=== PATIENT | male | born 1955 | race Caucasian/White ===

== ENCOUNTER → 2023-07-16 15:30 | Outpatient (BNVA) | payer MEDICARE, OTHER, SELFPAY | PROVIDERS: PCP Family Medicine; Visit Provider Family Medicine | DX: I10 Essential (primary) hypertension (principal); E11.9 Type 2 diabetes mellitus without complications; E03.9 Hypothyroidism, unspecified; E78.5 Hyperlipidemia, unspecified | CPT/HCPCS: 80053; 80061; 83036; 84443; 85025 ==

== ENCOUNTER → 2023-08-18 12:05 | Outpatient (BNVA) | payer MEDICARE, OTHER, SELFPAY | PROVIDERS: PCP Family Medicine; Referring Provider Family Medicine; Visit Provider Internal Medicine Cardiovascular Disease | DX: R07.9 Chest pain, unspecified (principal); I45.10 Unspecified right bundle-branch block; I42.9 Cardiomyopathy, unspecified; I10 Essential (primary) hypertension; E11.9 Type 2 diabetes mellitus without complications; E78.5 Hyperlipidemia, unspecified; Z87.891 Personal history of nicotine dependence | CPT/HCPCS: 93005; 99204 ==

== ENCOUNTER 2023-08-21 09:22 | Outpatient (CLI) | payer MEDICARE, OTHER, SELFPAY ==
--- NOTE | 2023-08-21 10:00 | USCV_ITS ---
Luis Fernando Devlin Age: 68 Gender: M : 1955 Exam Date: 08/21/2023 09:31 Ordering Phys: Peggy Lim MD ([email or web address]) Technologist: GEORGI Exam Location: [facility] [place] Indication: CARDIOMYOPATHY BP: 122 / 81 HR: 84 Rhythm: Sinus Technical Quality: Adequate MEASUREMENTS (Male / Female) Normal Values 2D ECHO LVOT Diameter 2.0 cm LV Ejection Fraction MOD 2C 56.4 % LV Ejection Fraction 2C AL 54.2 % LA Diameter 3.8 cm LA Width 3.1 cm LA Height 5.5 cm RA Width 3.9 cm RA Height 4.4 cm Aorta at Sinotubular Diameter 2.7 cm IVC Diameter 2.0 cm M-MODE Aortic Annulus Diameter 3.8 cm LA Ao Ratio MM 1.1 MV E Point Septal Separation 1.2 cm DOPPLER AV Peak Velocity 121.0 cm/s LVOT Peak Velocity 111.0 cm/s AV Area Cont Eq vti 2.9 cm squared AV Area Cont Eq pk 3.0 cm squared MV Peak Velocity 93.0 cm/s MV Area PHT 3.9 cm squared Mitral E to A Ratio 0.4 MV E' Velocity 22.0 cm/s Mitral E to MV E' Ratio 5.0 Mitral E to LV E' Lateral Ratio 4.0 Mitral E to LV E' Septal Ratio 6.8 TR Peak Velocity 115.8 cm/s TR Peak Gradient 5.4 mmHg TR Mean Velocity 94.1 cm/s TR Mean Gradient 3.7 mmHg TR Velocity Time Integral 22.3 cm TV Peak E Velocity 37.0 cm/s Right Atrial Pressure 3.0 mmHg Pulmonary Artery Systolic Pressu 8.4 mmHg PV Peak Velocity 89.0 cm/s RV Acceleration Time 0.1 s RV Ejection Time 0.3 s RV AcT/ET 0.4 FINDINGS Left Ventricle Normal left ventricular size and systolic function, EF 60 %. No regional wall motion abnormalities. Mild left ventricular hypertrophy. Grade I/IV diastolic dysfunction (abnormal relaxation filling pattern), normal to mildly elevated filling pressures. Right Ventricle The right ventricle is normal in size and function. Right Atrium The right atrium is normal in size. Left Atrium Left atrium, upper limit of normal size Mitral Valve No gross abnormalities noted Aortic Valve No gross abnormalities noted Tricuspid Valve No gross abnormalities noted . Pulmonic Valve No gross abnormalities noted Pericardium Normal pericardium without effusion. Aorta Normal ascending aorta dimension. IVC The inferior vena cava appears normal. CONCLUSIONS Normal left ventricular size and systolic function, EF 60 %. No regional wall motion abnormalities. Mild left ventricular hypertrophy. Grade I/IV diastolic dysfunction (abnormal relaxation filling pattern), normal to mildly elevated filling pressures. Left atrium, upper limit of normal size. No gross valvular abnormalities noted. There is no pericardial effusion. Technically somewhat limited study because of poor parasternal windows Dr Peggy Lim MD FACC (Electronically Signed) Final Date: 23 August 2023 08:51 S
== END 2023-08-21 09:23 | disposition home or self-care (01) ==
LOC: RAD 09:22
PROVIDERS: PCP Family Medicine; Visit Provider Internal Medicine Cardiovascular Disease
DX: R06.09 Other forms of dyspnea (principal)
CPT/HCPCS: 93306

== ENCOUNTER → 2023-09-22 08:53 | Outpatient (BNVA) | payer MEDICARE, OTHER, SELFPAY | PROVIDERS: PCP Family Medicine; Visit Provider Nurse Practitioner Family | DX: M19.011 Primary osteoarthritis, right shoulder (principal); M25.511 Pain in right shoulder | CPT/HCPCS: 73030 ==

== ENCOUNTER 2023-10-15 07:32 | Outpatient (CLI) | payer MEDICARE, OTHER, SELFPAY ==
--- NOTE | 2023-10-15 08:00 | MR_ITS ---
WS: [id number] MRI RIGHT KNEE NONCONTRAST TECHNIQUE: Axial PD, coronal PD fat sat, coronal PD, sagittal PD, and sagittal PD fat-sat images obta ined. CLINICAL INFORMATION: M25.561 - Pain in right knee COMPARISON: None. FINDINGS: Distal quadriceps and patella tendons are intact. Hypertrophic patella. No significant joint effusion . 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 Chondral fissuring involving the lateral joint bridger rtment at the tibial plateau. Grade IV chondromalacia patella. Hypertrophic patella. Medial and later al patellar retinaculum appear intact. Prepatellar soft tissue edema. Normal lateral collateral ligam ent. Medial collateral ligament appears intact. Chronic thinning of the medial and lateral meniscus. No acute appearing meniscal tears. Small amount of chronic intrasubstance signal normality involving the posterior horn medial meniscus. Tiny lobulated ganglion cysts along the dorsal intercondylar notc h. Small lobulated varices in the popliteal fossa. Ovoid low signal lesion measuring 9 x 5 mm in the dorsal superior intercondylar notch adjacent to the ACL and just dorsal to the PCL. This may present a calcified loose body or possibly ossified ganglio n cyst. No other suspicious findings. IMPRESSION: 1. Normal ACL and PCL. 2. Ovoid low signal nodule in the dorsal intercondylar notch abutting the ACL and just dorsal to the PCL. This may present a calcified intra-articular loose body or ossified ganglion cyst. This measure s approximately 9 x 5 mm 3. Moderate to advanced tricompartmental arthritis. Grade 3-4 chondromalacia lateral joint compartme nt. 4. Grade IV chondromalacia patella. 5. No acute appearing meniscal tears. 6. No other acute findings. Outbridge grading: grade IV: full-thickness cartilage loss with underlying bone reactive changes
--- NOTE | 2023-10-15 08:45 | MR_ITS ---
WS: [id number] MRI RIGHT SHOULDER NONCONTRAST TECHNIQUE: Sagittal T2, coronal T1, T2 and proton density imaging. Axial gradient PDE imaging. CLINICAL INFORMATION: M25.511 - Pain in right shoulder COMPARISON: None. FINDINGS: Moderate to advanced degenerative arthritis AC joint with mild synovial thickening and edema. Mild do wnsloping acromion with impingement on the distal supraspinatus. Slight subacromial spurring. Trace s ubacromial fluid. Chronic thinning of the distal supraspinatus. Supraspinatus and infraspinatus appea r intact. Normal teres minor. Normal subscapularis. Small amount of subcoracoid fluid. Moderate to advanced degenerative arthritis glenohumeral joint with hypertrophic spurring and joint s pace narrowing. Subchondral cystic change involving the glenoid. Distal subscapularis appears intact. Mild chronic thinning of the subscapularis tendon. Biceps tendon appears intact within the bicipital groove. Degenerative fraying of the glenoid labrum. Thickening with increased signal intra-articular biceps tendon compatible with tendinopathy. IMPRESSION: 1. Advanced degenerative arthritis AC joint with mild subacromial spurring and slight impingement of the distal supraspinatus. Small amount of subacromial fluid. 2. Chronic thinning of the distal supraspinatus which appears intact. Rotator cuff is otherwise inta ct. 3. Biceps tendon intact within the bicipital groove. 4. Moderate to advanced degenerative narrowing of the glenohumeral articulation with hypertrophic ch anges. Degenerative fraying and irregularity of the glenoid labrum. 5. Tendinopathy intra-articular biceps tendon. 6. No other acute findings.
== END 2023-10-15 07:33 | disposition home or self-care (01) ==
LOC: RAD 07:32
PROVIDERS: PCP Family Medicine; Visit Provider Nurse Practitioner Family
DX: M22.41 Chondromalacia patellae, right knee (principal); M25.561 Pain in right knee; G89.29 Other chronic pain; M25.511 Pain in right shoulder; M19.011 Primary osteoarthritis, right shoulder
CPT/HCPCS: 73221; 73721

== ENCOUNTER → 2023-10-27 08:11 | Outpatient (BNVA) | payer MEDICARE, OTHER, SELFPAY | PROVIDERS: PCP Family Medicine; Referring Provider Nurse Practitioner Family; Visit Provider Nurse Practitioner | DX: M19.011 Primary osteoarthritis, right shoulder (principal); M67.911 Unspecified disorder of synovium and tendon, right shoulder; S43.101A Unspecified dislocation of right acromioclavicular joint, initial encounter; X58.XXXA Exposure to other specified factors, initial encounter | CPT/HCPCS: 20610; 99205; J1100; J2795; J3301 ==

== ENCOUNTER → 2023-10-31 08:59 | Outpatient (BNVA) | payer MEDICARE, OTHER, SELFPAY | PROVIDERS: Visit Provider Nurse Practitioner | DX: M17.11 Unilateral primary osteoarthritis, right knee | CPT/HCPCS: 73560; 73565; 99214 ==

== ENCOUNTER → 2023-11-04 09:12 | Outpatient (BNVA) | payer MEDICARE, OTHER, SELFPAY | PROVIDERS: PCP Family Medicine; Visit Provider Family Medicine | DX: R05.9 Cough, unspecified (principal); R50.9 Fever, unspecified | CPT/HCPCS: 87070; 87880 ==

== ENCOUNTER 2023-11-05 06:00 | Outpatient (RCR) | payer MEDICARE, OTHER, SELFPAY | END 2023-11-13 23:59 | disposition home or self-care (01) | LOC: APT 06:00 | PROVIDERS: PCP Family Medicine; Visit Provider Nurse Practitioner | DX: M19.011 Primary osteoarthritis, right shoulder (principal) | CPT/HCPCS: 97110; 97162; 97530 ==

== ENCOUNTER 2023-11-14 06:00 | Outpatient (RCR) | payer MEDICARE, OTHER, SELFPAY | END 2023-12-14 23:59 | disposition home or self-care (01) | LOC: APT 06:00 | PROVIDERS: PCP Family Medicine; Visit Provider Nurse Practitioner | DX: M19.011 Primary osteoarthritis, right shoulder (principal) | CPT/HCPCS: 97110; 97530 ==

== ENCOUNTER 2023-12-15 06:00 | Outpatient (RCR) | payer MEDICARE, OTHER, SELFPAY | END 2024-01-13 23:59 | disposition home or self-care (01) | LOC: APT 06:00 | PROVIDERS: PCP Family Medicine; Visit Provider Nurse Practitioner | DX: M19.011 Primary osteoarthritis, right shoulder (principal) | CPT/HCPCS: 97110; 97140; 97530 ==

== ENCOUNTER → 2024-01-21 08:17 | Outpatient (BNVA) | payer MEDICARE, OTHER, SELFPAY | PROVIDERS: PCP Family Medicine; Visit Provider Family Medicine | DX: E11.9 Type 2 diabetes mellitus without complications (principal); Z12.5 Encounter for screening for malignant neoplasm of prostate; Z79.899 Other long term (current) drug therapy | CPT/HCPCS: 80053; 80061; 82043; 82306; 83036; 84443; 85025; G0103 ==

== ENCOUNTER → 2024-02-17 10:04 | Outpatient (BNVA) | payer MEDICARE, OTHER, SELFPAY | PROVIDERS: Visit Provider Internal Medicine Cardiovascular Disease | DX: I11.0 Hypertensive heart disease with heart failure (principal); I50.32 Chronic diastolic (congestive) heart failure; E78.2 Mixed hyperlipidemia; E11.9 Type 2 diabetes mellitus without complications; Z79.4 Long term (current) use of insulin; E03.8 Other specified hypothyroidism; Z87.891 Personal history of nicotine dependence | CPT/HCPCS: 99214 ==

== ENCOUNTER → 2024-04-21 09:10 | Outpatient (BNVA) | payer MEDICARE, OTHER, SELFPAY | PROVIDERS: PCP Family Medicine; Visit Provider Family Medicine | DX: E11.9 Type 2 diabetes mellitus without complications (principal) | CPT/HCPCS: 80053; 80061; 83036; 84443; 85025 ==

== ENCOUNTER 2024-06-02 11:42 | Outpatient (CLI) | payer MEDICARE, OTHER, SELFPAY ==
--- NOTE | 2024-06-02 11:49 | XRR_ITS ---
PROCEDURE INFORMATION: Exam: XR Right Knee Exam date and time: 06/02/2024 11:54 AM Age: 68 years old Clinical indication: Patient HX: Pain in the right knee and osteoarthritis in the RT shoulder. PT states he could have injured it when working over the last few years. ; Additional info: Pain in right knee TECHNIQUE: Imaging protocol: Radiologic exam of the right knee. Views: 1 or 2 views. COMPARISON: CR XR knees AP WB w RT lmt ORTH 10/31/2023 9:08 AM FINDINGS: Bones/joints: Moderate patellofemoral joint space narrowing and osteophytosis. No acute fracture or dislocation. No significant knee joint effusion. Soft tissues: Visualized soft tissues are within normal limits. XR/XR knee RT 1-2V [id number] IMPRESSION: Moderate osteoarthritis of the patellofemoral joint. This appears stable to minimally worsened compared to 10/31/2023.
--- NOTE | 2024-06-02 11:50 | XRR_ITS ---
PROCEDURE INFORMATION: Exam: XR Right Shoulder Exam date and time: 06/02/2024 11:54 AM Age: 68 years old Clinical indication: Patient HX: Pain in the right knee and osteoarthritis in the RT shoulder. PT states he could have injured it when working over the last few years. ; Additional info: Osteoarthritis in right shoulder TECHNIQUE: Imaging protocol: Radiologic exam of the right shoulder. Views: 2 or more views. COMPARISON: MR shoulder RT wo con* [id number] 10/15/2023 7:48 AM FINDINGS: Bones/joints: [id number] acromioclavicular joint arthrosis. [id number]-fg-[id number] glenohumeral joint arthrosis. No acute fracture or dislocation. Soft tissues: Visualized soft tissues are within normal limits. XR/XR shoulder RT min 2V* [id number] IMPRESSION: 1. Pjim-ay-iaxaqugr acromioclavicular joint arthrosis. 2. Uaqd-uh-tnwbfdcb glenohumeral joint arthrosis.
== END 2024-06-02 11:43 | disposition home or self-care (01) ==
LOC: RAD 11:46
PROVIDERS: PCP Family Medicine; Visit Provider Student in an Organized Health Care Education/Training Program
DX: M19.011 Primary osteoarthritis, right shoulder (principal); M17.11 Unilateral primary osteoarthritis, right knee
CPT/HCPCS: 73030; 73560

== ENCOUNTER → 2024-08-04 09:16 | Outpatient (BNVA) | payer MEDICARE, OTHER, SELFPAY | PROVIDERS: PCP Nurse Practitioner Family; Visit Provider Nurse Practitioner Family | DX: R79.89 Other specified abnormal findings of blood chemistry (principal); E78.5 Hyperlipidemia, unspecified; E11.9 Type 2 diabetes mellitus without complications | CPT/HCPCS: 80053; 80061; 83036; 84403; 85025 ==

== ENCOUNTER 2024-09-28 14:04 | Outpatient (CLI) | payer MEDICARE, OTHER, SELFPAY ==
--- NOTE | 2024-09-28 14:00 | US_ITS ---
WS: [id number] THYROID ULTRASOUND HISTORY: E04.9 - Nontoxic goiter, unspecified COMPARISON: None available. Right lobe: 3.1 cm x 4.5 cm x 6.8 cm (w x ap x l). Volume: 44.7 cm3. Markedly enlarged heterogeneous thyroid lobe. Increased vascularity. There are small scattered pseudo nodules. Left lobe: 4.9 cm x 4.3 cm x 6.8 cm (w x ap x l). Volume: 68.9 cm3. Markedly enlarged heterogeneous thyroid lobe. Markedly nodular gland with mildly increased vascularit y. Isthmus: 1.1 cm. US/US thyroid [id number] IMPRESSION: Markedly enlarged nodular heterogeneous gland. Most likely multinodular goiter.
== END 2024-09-28 14:05 | disposition home or self-care (01) ==
PROVIDERS: PCP Nurse Practitioner Family; Visit Provider Nurse Practitioner Family
DX: E04.2 Nontoxic multinodular goiter (principal)
CPT/HCPCS: 76536

== ENCOUNTER → 2024-10-11 13:04 | Outpatient (BNVA) | payer MEDICARE, OTHER, SELFPAY | PROVIDERS: PCP Nurse Practitioner Family; Visit Provider Nurse Practitioner Family | DX: R05.9 Cough, unspecified (principal) | CPT/HCPCS: 71046 ==

== ENCOUNTER → 2024-11-09 12:15 | Outpatient (BNVA) | payer MEDICARE, OTHER, SELFPAY | PROVIDERS: PCP Nurse Practitioner Family; Visit Provider Nurse Practitioner Family | DX: E11.9 Type 2 diabetes mellitus without complications (principal); E03.9 Hypothyroidism, unspecified | CPT/HCPCS: 80053; 80061; 83036; 83735; 84443; 85025 ==

== ENCOUNTER → 2024-12-21 08:13 | Outpatient (BNVA) | payer MEDICARE, OTHER, SELFPAY | PROVIDERS: PCP Nurse Practitioner Family; Referring Provider Nurse Practitioner Family; Visit Provider Internal Medicine | DX: G47.33 Obstructive sleep apnea (adult) (pediatric) (principal); I50.9 Heart failure, unspecified; E29.1 Testicular hypofunction; E11.9 Type 2 diabetes mellitus without complications; Z12.5 Encounter for screening for malignant neoplasm of prostate; R71.8 Other abnormality of red blood cells | CPT/HCPCS: 99204 ==

== ENCOUNTER → 2024-12-22 08:04 | Outpatient (BNVA) | payer MEDICARE, OTHER, SELFPAY | PROVIDERS: PCP Nurse Practitioner Family; Visit Provider Internal Medicine | DX: G47.33 Obstructive sleep apnea (adult) (pediatric) (principal); Z12.5 Encounter for screening for malignant neoplasm of prostate; I50.9 Heart failure, unspecified; E29.1 Testicular hypofunction; E11.9 Type 2 diabetes mellitus without complications | CPT/HCPCS: 80053; 80061; 83001; 83002; 84146; 84270; 84402; 84403; 85025; G0103 ==

== ENCOUNTER 2025-01-06 15:12 | Oncology outpatient (recurring) (ONCR) | payer MEDICARE, OTHER, SELFPAY | END 2025-01-12 23:59 | disposition home or self-care (01) | PROVIDERS: PCP Nurse Practitioner Family; Visit Provider Internal Medicine | DX: D75.1 Secondary polycythemia (principal); E11.9 Type 2 diabetes mellitus without complications; E78.5 Hyperlipidemia, unspecified; E66.9 Obesity, unspecified; I50.9 Heart failure, unspecified; G47.33 Obstructive sleep apnea (adult) (pediatric); Z68.32 Body mass index [BMI] 32.0-32.9, adult | CPT/HCPCS: 99204 ==

== ENCOUNTER 2025-02-03 07:19 | Outpatient (CLI) | payer MEDICARE, OTHER, SELFPAY ==
--- NOTE | 2025-02-03 07:21 | CT_ITS ---
WS: [id number] CT NECK TECHNIQUE: Contrast-enhanced CT of the neck with coronal and sagittal reformatted images. CLINICAL INFORMATION: GOITER COMPARISON: None. DLP: 288.[address] scans at [facility] use at least one of these dose optimization techniques: automated exposure control; mA and/or kV adjustment per patient size (includes targeted exams where dose is matched to clinical indication); or iterative reconstruction. FINDINGS: Enlarged heterogeneous thyroid compatible with multinodular goiter worse involving the LEFT thyroid lobe. Enlargement of the isthmus. Enlarged LEFT thyroid extends into the anterior superior mediastinum. Left-right mass effect on the trachea which remains patent. Complex complex cystic dorsal projecting LEFT thyroid nodule measuring 2.6 x 3.2 cm Dental artifact degrades images of the tongue base. Parotid glands are normal. Normal submandibular glands. Normal [place] tonsils. Normal posterior nasopharynx and parapharyngeal fat. No evidence of supraglottic or glottic mass. Aortic calcification. Lung apices are well aerated. Paranasal sinuses and mastoid air cells are well aerated. CT/CT neck w con* [id number] IMPRESSION: 1. Enlarged multinodular goiter described above with extension into the anteri or superior mediastinum worse involving the LEFT thyroid lobe. 2. LEFT RIGHT deviation of the trachea. No significant narrowing. 3. Normal salivary glands. 4. No other acute findings.
== END 2025-02-03 07:20 | disposition home or self-care (01) ==
PROVIDERS: PCP Nurse Practitioner Family; Visit Provider Specialist
DX: E04.2 Nontoxic multinodular goiter (principal); J39.8 Other specified diseases of upper respiratory tract; R93.89 Abnormal findings on diagnostic imaging of other specified body structures; I70.0 Atherosclerosis of aorta
CPT/HCPCS: 70491

== ENCOUNTER → 2025-02-15 09:31 | Outpatient (BNVA) | payer MEDICARE, OTHER, SELFPAY | PROVIDERS: PCP Nurse Practitioner Family; Visit Provider Nurse Practitioner Family | DX: E11.9 Type 2 diabetes mellitus without complications (principal); I50.9 Heart failure, unspecified; G47.33 Obstructive sleep apnea (adult) (pediatric); Z12.5 Encounter for screening for malignant neoplasm of prostate; E03.9 Hypothyroidism, unspecified; E29.1 Testicular hypofunction | CPT/HCPCS: 80053; 80061; 84270; 84402; 84403; 84443; 85025; G0103 ==

== ENCOUNTER → 2025-02-17 07:49 | Outpatient (BNVA) | payer MEDICARE, OTHER, SELFPAY | PROVIDERS: PCP Nurse Practitioner Family; Visit Provider Internal Medicine | DX: E29.1 Testicular hypofunction (principal); E11.9 Type 2 diabetes mellitus without complications; I50.9 Heart failure, unspecified | CPT/HCPCS: 99214 ==

== ENCOUNTER → 2025-02-21 08:49 | Outpatient (BNVA) | payer MEDICARE, OTHER, SELFPAY | PROVIDERS: PCP Nurse Practitioner Family; Referring Provider Nurse Practitioner Family; Visit Provider Student in an Organized Health Care Education/Training Program | DX: Z12.11 Encounter for screening for malignant neoplasm of colon (principal) | CPT/HCPCS: 99024; 99204 ==

== ENCOUNTER → 2025-02-23 11:05 | Outpatient (BNVA) | payer MEDICARE, OTHER, SELFPAY | PROVIDERS: PCP Nurse Practitioner Family; Visit Provider Internal Medicine Cardiovascular Disease | DX: I11.0 Hypertensive heart disease with heart failure (principal); I50.32 Chronic diastolic (congestive) heart failure; E78.5 Hyperlipidemia, unspecified; Z79.82 Long term (current) use of aspirin; Z87.891 Personal history of nicotine dependence; R07.9 Chest pain, unspecified; R06.02 Shortness of breath | CPT/HCPCS: 36415; 80048; 83880; 93005; 99214 ==

== ENCOUNTER → 2025-03-02 08:05 | Outpatient (BNVA) | payer MEDICARE, OTHER, SELFPAY | PROVIDERS: PCP Nurse Practitioner Family; Visit Provider Internal Medicine | DX: I50.9 Heart failure, unspecified (principal); E29.1 Testicular hypofunction; G47.33 Obstructive sleep apnea (adult) (pediatric) | CPT/HCPCS: 84403 ==

== ENCOUNTER 2025-03-10 13:01 | Oncology outpatient (recurring) (ONCR) | payer MEDICARE, OTHER, SELFPAY ==
[2025-03-10 13:37] LABS: Basophils % 0.5 %; Eosinophils # 0.2 10^3/uL (0.0-0.8); Eosinophils % 2.7 %; Hematocrit 46.1 % (37-53); Lymphocytes # 2.5 10^3/uL (0.8-4.8); Lymphocytes % 31.4 %; Mean Corpuscular HGB Conc 33.8 g/dL (30-55); Mean Corpuscular Hemoglobin 31.8 pg (27-33); Mean Corpuscular Volume 94.1 fl (82-101); Mean Platelet Volume 10.2 fL (7.4-10.4); Monocytes # 0.8 10^3/uL (0.2-0.9); Monocytes % 10.1 %; Neutrophils # 4.44 10^3/uL (1.8-7.7); Neutrophils % 55.1 %; Nucleated Red Blood Cells % 0 %; Platelet Count 227 10^3/cmm (157-399); Red Cell Distribution Width 11.9 % (12.1-15.1); White Blood Count 8.08 10^3/uL (3.29-11.43)
[2025-03-10 13:59] LABS: Alanine Aminotransferase 27 U/L (0-41); Albumin Level 4.3 g/dL (3.5-5.2); Alkaline Phosphatase 71 U/L (40-130); Anion Gap 14.5 (5-19); Aspartate Amino Transferase 21 U/L (0-40); Blood Urea Nitrogen 15 mg/dL (8-23); Calcium 8.9 mg/dL (8.5-10.5); Carbon Dioxide 27 mmol/L (22-29); Chloride 98 mmol/L (98-107); Globulin 2.4 g/dL (1.3-4.6); Glomerular Filtration Rate 111.5 mL/min (90-130); Glucose 141 mg/dL (65-115); Osmolality Calculated 283 mOsm/kg (285-295); Potassium 4.5 mmol/L (3.5-5.1); Sodium 135 mmol/L (136-145); Total Bilirubin 0.6 mg/dL (0.15-1.2); Total Protein 6.7 g/dL (6.6-8.7)
== END 2025-03-14 23:59 | disposition home or self-care (01) ==
PROVIDERS: Nurse Practitioner; PCP Nurse Practitioner Family; Visit Provider Internal Medicine
DX: D75.1 Secondary polycythemia (principal)
CPT/HCPCS: 36415; 80053; 85025

== ENCOUNTER 2025-03-15 10:29 | Day surgery (SDC) | payer MEDICARE, OTHER, SELFPAY ==
[2025-03-15 10:46] VITALS: BMI 32.3
[2025-03-15 10:51] VITALS: BP 123/81; PULSE 84; RESP 18; TEMP 36.3; O2SAT 97
--- NOTE | 2025-03-15 11:01 | ANES.PREANE2 ---
Pre-Anesthetic Assessment Height/Weight: Height 1.83 m Weight 107.955 kg Temp Pulse Resp BP Pulse Ox O2 Del Method 97.3 F L 84 18 123/81 97 Room Air 03/15/25 10:51 03/15/25 10:51 03/15/25 10:51 03/15/25 10:51 03/15/25 10:51 03/15/25 10:51 Operation Date: 03/15/25 12:00 Proposed Procedures p Colonoscopy 93553 G0105 Z12.11(Not Applicable) - Sherif Alcaraz MD Familial anesthetic complications: None Was Beta Gabriel taken within 24 hours: Yes Was Clonidine taken within 24 hours: N/A Last intake: Intake Last Liquid Date 03/14/25 Last Liquid Time 22:00 Last Solid Date 03/13/25 Last Solid Time 18:00 Social No alcohol and No tobacco Exam alert, oriented x 3, clear to auscultation bilaterally and regular rate & rhythm Airway Submandibular: within normal limits Cervical ROM: within normal limits Mallampati: Class II Dentition: full (Implants, some missing) History/ROS No significant history except as noted and No significant complaints Pulmonary Sleep Apnea CV/HEM Arrythmia, Coronary Artery Disease (Received cardiac clearance), Congestive Heart Failure and Hypertension CONCLUSIONS Normal left ventricular size and systolic function, EF 60 %. No regional wall motion abnormalities. Mild left ventricular hypertrophy. Grade I/IV diastolic dysfunction (abnormal relaxation filling pattern), normal to mildly elevated filling pressures. Left atrium, upper limit of normal size. No gross valvular abnormalities noted. There is no pericardial effusion. Technically somewhat limited study because of poor parasternal windows None reported Hepatic Hepatitis (Hep C, has been treated ) GI Chronic diarrhea Metabolic Diabetes Mellitus, Hyperlipidemia and Thyroid Disease (Goiters) Musc/skel Lower Back Pain and Osteoarthritis/DJD Neuropsych Neuropathy Anesthetic Plan ASA status: 3 Anesthesia: Anesthesia Evaluation, General and MAC Risk of > 500 ml blood loss (7ml/kg in children): No Medications/Allergies Home Medications ?Medication ?Instructions ?Recorded ?Confirmed ?Last Taken ?Type aspirin 81 mg tablet,delayed 81 mg PO DAILY 05/14/23 03/10/25 03/13/25 History release (Adult Low Dose Aspirin) glipizide 5 mg tablet 5 mg PO BID 05/14/23 03/10/25 03/14/25 History omega-3 fatty acids 1,000 mg 1,000 mg PO DAILY 05/14/23 03/10/25 03/13/25 History capsule lancets 31 gauge #300 ea 08/04/23 03/10/25 Unknown Rx blood-glucose meter (Blood Glucose #1 ea 08/13/23 03/10/25 Unknown Rx Monitoring kit) hydrocodone 10 mg-acetaminophen 1 tab PO Q6H PRN pain 30 days #120 05/07/24 03/15/25 03/14/25 Rx 325 mg tablet tabs blood sugar diagnostic (Blood #50 ea 07/08/24 03/10/25 Unknown Rx Glucose Test strips) losartan 50 mg tablet 50 mg PO DAILY #90 tabs 10/04/24 03/10/25 03/14/25 Rx insulin syringe-needle U-100 1 mL #100 ea 11/01/24 03/10/25 Unknown Rx 31 gauge x 5/16 (BD Insulin Syringe Ultra-Fine) syringe with needle 3 mL 21 gauge #100 ea 12/21/24 03/10/25 Unknown History x 1 1/2 (BD Luer-Jarrell Syringe) needle (disp) 18 G 18 gauge x 1 #10 ea 12/29/24 03/10/25 Unknown Rx 1/2 (BD Regular Bevel [place]) needle (disp) 23 gauge 23 gauge x #10 ea 12/29/24 03/10/25 Unknown Rx 1 1/4 (BD Specialty Use [place]) diclofenac sodium 1 % topical gel 4 g topical QID PRN Pain 01/06/25 03/15/25 Unknown History syringe with needle 3 mL 21 gauge #100 ea 01/11/25 03/10/25 Unknown Rx x 1 1/2 (BD Luer-Jarrell Syringe) metformin 500 mg tablet,extended 1,000 mg (2 x 500 mg) PO BID #360 01/17/25 03/10/25 03/14/25 Rx release 24 hr tabs tamsulosin 0.4 mg capsule 0.4 mg PO DAILY #30 caps 01/27/25 03/10/25 03/13/25 Rx tizanidine 2 mg tablet 2 mg PO BID PRN Muscle Spasm 02/15/25 03/10/25 03/13/25 History levothyroxine 50 mcg tablet 25 mcg PO DAILY 02/23/25 03/10/25 03/15/25 History (Synthroid) testosterone cypionate 200 mg/mL 80 mg (0.4 mL) SUBCUT Q7D #1 mL 03/04/25 03/10/25 03/06/25 Rx intramuscular oil (Depo-Testosterone) carvedilol 6.25 mg tablet 6.25 mg PO BID #180 tabs 03/09/25 03/10/25 03/15/25 Rx atorvastatin 40 mg tablet 40 mg PO DAILY 03/10/25 03/10/25 03/14/25 History famotidine 40 mg tablet (Pepcid) 40 mg PO BID 03/10/25 03/10/25 03/14/25 History insulin glargine 100 unit/mL 60 unit SUBCUT BID 03/10/25 03/10/25 03/14/25 History subcutaneous solution (Lantus U-100 Insulin) semaglutide 1 mg/dose (4 mg/3 mL) 1 mg SUBCUT .WEEKY 03/10/25 03/10/25 03/06/25 History subcutaneous pen injector (Ozempic) spironolactone 25 mg tablet 25 mg PO DAILY 03/10/25 03/10/25 03/13/25 History Allergies Allergy/AdvReac Type Severity Reaction Status Date / Time No Known Allergies Allergy Verified 03/10/25 08:46 Current Medications Generic Name Dose Route Start Last Admin Trade Name Freq PRN Reason Stop Dose Admin Sodium Chloride 1,000 mls @ 15 mls/hr 03/15/25 10:35 03/15/25 10:53 Sodium Chloride 0.9% IV 03/16/25 10:34 15 mls/hr .Q24H PRN Administration COLONOSCOPY FLUIDS PFSH Anesthesia Medical History Primary osteoarthritis of right knee Separation of acromioclavicular joint due to injury Tendinopathy of right rotator cuff Arthritis of right acromioclavicular joint Primary osteoarthritis, right shoulder Diabetes mellitus Hyperlipidemia Cardiomyopathy Chronic back pain greater than 3 months duration Hypothyroid Hypertension Surgical History Hx of appendectomy History of skin graft left hand History of back surgery Social History Smoking and tobacco/nicotine status: former use of tobacco/nicotine Quit status (tobacco/nicotine): has quit using Year quit tobacco: 23 YEARS AGO Second hand smoke exposure: No Alcohol intake: never Substance/Drug Use: never Adopted: No Caregiver/support person: No Lives independently: Yes Household members: spouse Housing: House Marital status: Number of children: 2 Highest education level completed: High School Graduate service: No Current occupational status: retired Data Anesthesia Cardiac Studies: Echocardiogram 08/21/23
--- NOTE | 2025-03-15 11:03 | W.PM.OPSUD ---
Surgery/Procedure H&P Update DATE OF PROCEDURE: March 15, 2025 DATE H&P PERFORMED: 02/21/25 H&P UPDATE INFORMATION: I have reviewed H&P completed within last 30 days, I have examined patient prior to procedure and No changes to prior documentation PLANNED PROCEDURE: Operation Date: 03/15/25 12:00 Proposed Procedures p Colonoscopy 79750 G0105 Z12.11(Not Applicable) - Sherif Alcaraz MD
[2025-03-15 11:40] VITALS: BP 102/58; PULSE 69; RESP 10; TEMP 36.4; O2SAT 97
[2025-03-15 11:58] VITALS: BP 113/72; PULSE 63; RESP 18; O2SAT 97
== END 2025-03-15 12:13 | disposition home or self-care (01) ==
PROVIDERS: PCP Nurse Practitioner Family; Visit Provider Student in an Organized Health Care Education/Training Program
PROC: 0DJD8ZZ Inspection of Lower Intestinal Tract, Via Natural or Artificial Opening Endoscopic (ICD-10-PCS; CPT 45378; principal; 2025-03-15 12:00)
DX: Z12.11 Encounter for screening for malignant neoplasm of colon (principal); Z80.0 Family history of malignant neoplasm of digestive organs; I25.10 Atherosclerotic heart disease of native coronary artery without angina pectoris; I11.0 Hypertensive heart disease with heart failure; I50.9 Heart failure, unspecified; E78.5 Hyperlipidemia, unspecified; E04.9 Nontoxic goiter, unspecified; E11.40 Type 2 diabetes mellitus with diabetic neuropathy, unspecified; Z79.84 Long term (current) use of oral hypoglycemic drugs; Z79.82 Long term (current) use of aspirin; Z79.899 Other long term (current) drug therapy; Z79.4 Long term (current) use of insulin; Z79.890 Hormone replacement therapy; Z79.85 Long-term (current) use of injectable non-insulin antidiabetic drugs; Z87.891 Personal history of nicotine dependence
CPT/HCPCS: 36416; 82962; G0105; J2704; J7030

== ENCOUNTER 2025-05-12 10:51 | Oncology outpatient (recurring) (ONCR) | payer MEDICARE, OTHER, SELFPAY ==
[2025-05-12 11:15] LABS: Hematocrit 48.7 % (37-53); Hemoglobin 16.00 g/dL (11.27-16.99); Mean Corpuscular HGB Conc 32.9 g/dL (30-55); Mean Corpuscular Hemoglobin 30.5 pg (27-33); Mean Corpuscular Volume 92.9 fl (82-101); Nucleated Red Blood Cells % 0 %; Platelet Count 200 10^3/cmm (157-399); Red Blood Count 5.24 10^6/uL (3.85-5.65); White Blood Count 7.51 10^3/uL (3.29-11.43)
[2025-05-12 11:28] LABS: Alanine Aminotransferase 35 U/L (0-41); Albumin Level 4.3 g/dL (3.5-5.2); Alkaline Phosphatase 74 U/L (40-130); Anion Gap 12.7 (5-19); Aspartate Amino Transferase 23 U/L (0-40); Blood Urea Nitrogen 17 mg/dL (8-23); Calcium 9.3 mg/dL (8.5-10.5); Carbon Dioxide 30 mmol/L (22-29); Chloride 99 mmol/L (98-107); Ferritin 80 ng/mL (30-400); Globulin 2.7 g/dL (1.3-4.6); Glucose 80 mg/dL (65-115); Iron 149 ug/dL (59-158); Osmolality Calculated 285 mOsm/kg (285-295); Potassium 4.7 mmol/L (3.5-5.1); Sodium 137 mmol/L (136-145); Total Iron Binding Capacity 337 mcg/dl; Total Protein 7.0 g/dL (6.6-8.7); Unsaturated Iron Binding 188 ug/dL (112-347); Uric Acid 4.2 mg/dL (3.4-7.0)
== END 2025-05-15 23:59 | disposition home or self-care (01) ==
PROVIDERS: Nurse Practitioner; PCP Nurse Practitioner Family; Visit Provider Internal Medicine
DX: D75.1 Secondary polycythemia (principal); E11.9 Type 2 diabetes mellitus without complications; Z87.891 Personal history of nicotine dependence; Z53.9 Procedure and treatment not carried out, unspecified reason
CPT/HCPCS: 36415; 80053; 82728; 83540; 83550; 84550; 85025; 99213

== ENCOUNTER → 2025-05-19 09:17 | Outpatient (BNVA) | payer MEDICARE, OTHER, SELFPAY | PROVIDERS: PCP Nurse Practitioner Family; Visit Provider Internal Medicine | DX: R23.4 Changes in skin texture (principal); G47.33 Obstructive sleep apnea (adult) (pediatric); I50.9 Heart failure, unspecified; E29.1 Testicular hypofunction | CPT/HCPCS: 36415; 84403; 84439; 84443 ==

== ENCOUNTER → 2025-05-27 12:02 | Outpatient (BNVA) | payer MEDICARE, OTHER, SELFPAY | PROVIDERS: PCP Nurse Practitioner Family; Visit Provider Nurse Practitioner Family | DX: E11.9 Type 2 diabetes mellitus without complications (principal) | CPT/HCPCS: 80061; 83036 ==

== ENCOUNTER → 2025-05-30 09:06 | Outpatient (BNVA) | payer MEDICARE, OTHER, SELFPAY | PROVIDERS: PCP Nurse Practitioner Family; Visit Provider Nurse Practitioner Family | DX: E11.9 Type 2 diabetes mellitus without complications (principal); R19.7 Diarrhea, unspecified | CPT/HCPCS: 87045; 87177; 87209; 87427; 87449 ==

== ENCOUNTER 2025-08-25 09:45 | Oncology outpatient (recurring) (ONCR) | payer MEDICARE, OTHER, SELFPAY ==
[2025-08-25 10:21] LABS: Hematocrit 48.3 % (37-53); Hemoglobin 15.90 g/dL (11.27-16.99); Mean Corpuscular HGB Conc 32.9 g/dL (30-55); Mean Corpuscular Hemoglobin 30.3 pg (27-33); Mean Corpuscular Volume 92.2 fl (82-101); Nucleated Red Blood Cells % 0 %; Platelet Count 199 10^3/cmm (157-399); Red Blood Count 5.24 10^6/uL (3.85-5.65); White Blood Count 7.70 10^3/uL (3.29-11.43)
[2025-08-25 10:53] LABS: Alanine Aminotransferase 25 U/L (0-41); Albumin Level 4.2 g/dL (3.5-5.2); Alkaline Phosphatase 95 U/L (40-130); Anion Gap 14.9 (5-19); Aspartate Amino Transferase 20 U/L (0-40); Blood Urea Nitrogen 10 mg/dL (8-23); Calcium 8.2 mg/dL (8.5-10.5); Carbon Dioxide 25 mmol/L (22-29); Chloride 102 mmol/L (98-107); Cholesterol 116 mg/dL (0-200); Globulin 2.6 g/dL (1.3-4.6); Glucose 213 mg/dL (65-115); HDL Cholesterol 29 mg/dL (60-100); Osmolality Calculated 289 mOsm/kg (285-295); Potassium 4.9 mmol/L (3.5-5.1); Sodium 137 mmol/L (136-145); Thyroid Stimulating Hormone 0.65 uIU/mL (0.27-4.20); Total Protein 6.8 g/dL (6.6-8.7); Triglycerides 198 mg/dL (0-150)
[2025-08-25 12:48] LABS: Ferritin 46 ng/mL (30-400)
[2025-08-25 16:25] LABS: Free T4 Free Thyroxine 1.14 ng/dL (0.82-1.77)
== END 2025-09-14 23:59 | disposition home or self-care (01) ==
PROVIDERS: Internal Medicine; PCP Nurse Practitioner Family; Visit Provider Internal Medicine
DX: D75.1 Secondary polycythemia (principal); Z87.891 Personal history of nicotine dependence; I50.9 Heart failure, unspecified; G47.33 Obstructive sleep apnea (adult) (pediatric); E11.9 Type 2 diabetes mellitus without complications; E03.8 Other specified hypothyroidism; E78.2 Mixed hyperlipidemia; E04.2 Nontoxic multinodular goiter
CPT/HCPCS: 36415; 80053; 80061; 82728; 83615; 84403; 84439; 84443; 85025; 86140; 99213